=== PATIENT | male | born 1950 | race Caucasian/White ===

== ENCOUNTER → 2016-10-20 | Outpatient (CLI) | payer OTHER ==
[~2016-10-20] MED LIST: ADVIL PM CAPLE1 EACH PO; ASPIRIN81 M2 PO; ATENOLOL 25 MG25 M1 PO; CIPROFLOXACIN500 M3 PO; FISH OIL 500 M1 EAC1 PO; HYDROCODON-ACE1 EAC7 PO; MULTIVITAMINS PO; NIASPAN 500 MG500 M1 PO; RED YEAST RICE600 M1 PO; TAMSULOSIN HCL0.4 M1 PO; VITAMINC500 PO
== END ==
LOC: MRI 11:01
DX: M51.36 Other intervertebral disc degeneration, lumbar region (principal); M12.88 Other specific arthropathies, not elsewhere classified, other specified site; M48.06 Spinal stenosis, lumbar region; M54.5 Low back pain

== ENCOUNTER → 2019-08-18 | Outpatient (CLI) | payer OTHER | LOC: SJCVCIMAG 15:16 | DX: I25.10 Atherosclerotic heart disease of native coronary artery without angina pectoris (principal); E78.5 Hyperlipidemia, unspecified; Z95.1 Presence of aortocoronary bypass graft ==

== ENCOUNTER → 2020-11-10 | Outpatient (CLI) | payer OTHER | LOC: SJCVCIMAG 08:17 | PROVIDERS: ATTEND Internal Medicine | DX: I73.9 Peripheral vascular disease, unspecified (principal); M79.605 Pain in left leg; R22.42 Localized swelling, mass and lump, left lower limb; M79.604 Pain in right leg; M79.89 Other specified soft tissue disorders ==

== ENCOUNTER → 2021-08-17 | Outpatient (CLI) | payer OTHER | LOC: SJCVCIMAG 08:49 | PROVIDERS: ATTEND Internal Medicine | DX: I08.1 Rheumatic disorders of both mitral and tricuspid valves (principal); R00.0 Tachycardia, unspecified; Z98.61 Coronary angioplasty status ==